=== PATIENT | female | born 1995 | race Two or more races ===

== ENCOUNTER 2017-02-17 10:00 | Emergency (ER) | payer OTHER, MEDICAID ==
[~2017-02-17] VITALS: Ht 182.9 cm; Wt 88.9 kg
[~2017-02-17 10:00] MED LIST: ATARAX25 MG PO; DEPAKOTE ER250 MG PO; PROVERA5 MG PO; RISPERDAL0.25 MG PO; TRAZODONE HCL50 MG PO; ZOLOFT50 MG PO
== END 2017-02-17 10:53 | disposition short-term general hospital (02) ==
LOC: ER 10:00
PROC: 0HQGXZZ Repair Left Hand Skin, External Approach (ICD-10-PCS; principal; 2017-02-17)
DX: S61.213A Laceration without foreign body of left middle finger without damage to nail, initial encounter (principal); W45.8XXA Other foreign body or object entering through skin, initial encounter; Y93.H9 Activity, other involving exterior property and land maintenance, building and construction; Y92.69 Other specified industrial and construction area as the place of occurrence of the external cause; Y99.0 Civilian activity done for income or pay